=== PATIENT | male | born 1980 | race Caucasian/White ===

== ENCOUNTER 2020-11-13 07:37 | Emergency (ER) | payer BC ==
[~2020-11-13] VITALS: Ht 190.5 cm; Wt 94.5 kg
[~2020-11-13 07:37] MED LIST: CHLO473M3 PO; NO HOME MEDS
[2020-11-13] MEDS ORDERED: MYCOL30CR TP (08:55)
[2020-11-13 09:04] VITALS: BP 131/94
== END 2020-11-13 09:06 | disposition home or self-care (01) ==
LOC: ER 07:38
DX: B35.6 Tinea cruris (principal); B48.8 Other specified mycoses; Z79.899 Other long term (current) drug therapy
CPT/HCPCS: 99283